=== PATIENT | male | born 1960 | race Caucasian/White ===

== ENCOUNTER → 2017-02-15 | Outpatient (CLI) | payer OTHER ==
--- NOTE | 2017-02-15 11:39 | KCIC ---
PROCEDURE MRI brain without contrast. HISTORY Memory loss, early onset Alzheimer's, member loss progressing for years TECHNIQUE Multiplanar, multi sequential non contrast MR imaging was performed of the brain. COMPARISON None FINDINGS Ventricular size is considered within normal limits. There is mild prominence of the supratentorial subarachnoid spaces somewhat greater of the parietal lobes of uncertain chronicity. There is no intra-axial mass effect, midline shift, extra-axial fluid collection. There is no significant hemosiderin deposition of the brain parenchyma. There is very mild T2 and FLAIR hyperintense signal abnormality of the supratentorial periventricular white matter bilaterally, degree of which could be seen in asymptomatic individuals. There is preservation of the major arterial intracranial flow voids at the skull base. There is mild to moderate bilateral ethmoid air cell mucosal thickening, mild mucosal thickening of the remainder of the paranasal sinuses. There is likely mucous retention cyst of the anteromedial left maxillary sinus 1.1 cm. Mastoid air cells are aerated. There is mild nonspecific prominence of the adenoids. Cerebellar tonsils are normal in location. There is preservation of marrow signal of the clivus. There is no significant abnormality of the pineal gland or pituitary gland. There is a tiny ovoid focus of nonspecific signal abnormality of the right frontal scalp anteriorly axial image 19 0.8 cm AP x 0.3 cm transverse, possibly small sebaceous cyst. IMPRESSION 1. Mild prominence of the supratentorial subarachnoid spaces slightly greater of the parietal lobes is of uncertain chronicity, may be due to mild involutional change. 2. There is mild to moderate paranasal sinus mucosal thickening greatest of the ethmoid air cells. 3. Very mild T2 and FLAIR hyperintense signal abnormality of the supratentorial periventricular white matter is nonspecific, degree of which could be seen in asymptomatic individuals. Electronically signed by: Bhanu Ramos MD (February 15, 2017 11:37:46)
== END | disposition home or self-care (01) ==
LOC: KCIC MRI 10:05
PROVIDERS: ATTEND Psychiatry & Neurology Neurology with Special Qualifications in Child Neurology
DX: R41.3 Other amnesia (principal); G30.0 Alzheimer's disease with early onset; F02.80 Dementia in other diseases classified elsewhere, unspecified severity, without behavioral disturbance, psychotic disturbance, mood disturbance, and anxiety
CPT/HCPCS: 70551